=== PATIENT | male | born 1945 | race Caucasian/White ===

== ENCOUNTER 2019-05-30 10:20 | Emergency (ER) | payer OTHER ==
--- NOTE | 2019-05-30 10:50 | ED ---
Complex/Multi-Sys Presentation - HPI Summary HPI Summary: Patient is a 73 y/o M who presents to [facility] for dizziness and near syncopal events with falls. He claims to have had a UTI for 1-1.5 weeks, noting that he has had increased urgency of urination with minimal urine production, some dysuria, and dark colored urine with possible hematuria. However, he has not actually been diagnosed with a UTI. Patient states that he took his PTSD medicine two days ago and subsequently experienced onset of dizziness. He is prescribed Trazodone, Sertaline, Prazosin, and a blood thinner. Patient notes that dizziness is listed as the side effect of one of his medications but denies having experienced dizziness when taking his medications previously and also reports no recent dose changes. He characterizes the dizziness as a light- headedness/near syncope. Patient states that he fell as a result of his dizziness and injured his left leg. He states that while trying to get up, he fell again. Patient notes that he had another fall last night as well. He characterizes his left leg pain as a soreness. Pain is at his ankle to his thigh. Patient is capable of ambulation. No head injury noted. He additionally denies SOB, CP, fever, chills, SHOEMAKER. Patient was evaluated at another medical facility earlier today and he was sent to ED for further workup. He notes that his blood pressure was measured to be 98/60 at this facility and that he was given orange juice. Patient has not eaten today. PMHx of PTSD, afib, HTN, heart failure, diabetes, and GERD. NKDA reported. He denies cigarette, alcohol, and substance usage. Home medications and allergies are reviewed. is present in the room. - History Of Current Complaint Chief Complaint: EDWeakness Time Seen by Provider: 05/30/19 10:36 Hx Obtained From: Patient Onset/Duration: Lasting Days, Lasting Weeks Timing: Days, Weeks Severity Currently: Moderate Location: Pain At: - left leg Associated Signs And Symptoms: Positive: Dizziness - light-headedness and near syncope, Other - He reports left leg pain, increased urgency of urination with minimal urine production, some dysuria, and dark colored urine with possible hematuria. No head injury noted. He additionally denies SOB, CP, fever, chills, SHOEMAKER.. Negative: Headache, SOB, Chest Pain, Fever - Allergies/Home Medications Allergies/Adverse Reactions: Allergies Allergy/AdvReac Type Severity Reaction Status Date / Time No Known Allergies Allergy Verified 05/30/19 10:28 Home Medications: Home Medications Apixaban* [Eliquis*] 5 mg PO BID 05/30/19 [History Confirmed 05/30/19] Betamethasone Dip 0.05% ON(NF) [Betamethasone Dipr 0.05% OINT(NF)] 1 applic TOPICAL BID 05/30/19 [History Confirmed 05/30/19] Cetirizine* [ZyrTEC 10 MG TAB*] 10 mg PO DAILY 05/30/19 [History Confirmed 05/30] Digoxin TAB* [Lanoxin TAB*] 0.125 mg PO DAILY 05/30/19 [History Confirmed ] Docusate CAP* [Colace Cap*] 100 mg PO BID PRN 05/30/19 [History Confirmed ] Furosemide TAB* [Lasix TAB*] 20 mg PO DAILY 05/30/19 [History Confirmed 05/30/19 ] Furosemide TAB* [Lasix TAB*] 40 mg PO DAILY 05/30/19 [History Confirmed 05/30/19 ] Metoprolol Tartrate TAB* [Lopressor TAB*] 150 mg PO BID 05/30/19 [History Confirmed 05/30/19] Multivitamins/Minerals TAB* [Theragran/minerals TAB*] 1 tab PO DAILY 05/30/19 [ History Confirmed 05/30/19] Omeprazole CAP (NF) [Prilosec CAP* 20 MG] 20 mg PO QAM PRN 05/30/19 [History Confirmed 05/30/19] Prazosin HCl 6 mg PO BEDTIME 05/30/19 [History Confirmed 05/30/19] Sertraline* [Zoloft*] 200 mg PO BEDTIME 05/30/19 [History Confirmed 05/30/19] Simvastatin TAB(NF) [Zocor(NF)] 10 mg PO BEDTIME 05/30/19 [History Confirmed ] Tadalafil (Nf) [Cialis (NF)] 20 mg PO ONCE PRN 05/30/19 [History Confirmed 05/30] Tamsulosin CAP* [Flomax CAP*] 0.4 mg PO DAILY 05/30/19 [History Confirmed ] glipiZIDE TAB* [Glucotrol TAB*] 5 mg PO QAM 05/30/19 [History Confirmed 05/30/19 ] glipiZIDE TAB* [Glucotrol TAB*] 10 mg PO QPM 05/30/19 [History Confirmed ] lisinopriL [Lisinopril] 20 mg PO DAILY 05/30/19 [History Confirmed 05/30/19] metFORMIN* [Glucophage 500 MG TAB *] 500 mg PO BID 05/30/19 [History Confirmed 05/30/19] traZODone TAB* [Desyrel TAB*] 50 mg PO BEDTIME 05/30/19 [History Confirmed 05/30] PMH/Surg Hx/FS Hx/Imm Hx Endocrine/Hematology History: Reports: Hx Diabetes Cardiovascular History: Reports: Hx Atrial Fibrillation, Hx Congestive Heart Failure, Hx Hypertension GI History: Reports: Hx Gastroesophageal Reflux Disease Musculoskeletal History: Denies: Hx Scoliosis Neurological History: Denies: Hx Headaches, Other Neuro Impairments/Disorders Infectious Disease History: No Infectious Disease History: Denies: Traveled Outside the [place] in Last 30 Days - Family History Known Family History: Positive: Hypertension - Social History Alcohol Use: None Substance Use Type: Reports: None Smoking Status (MU): Never Smoked Tobacco Review of Systems Negative: Fever, Chills Negative: Chest Pain Negative: Shortness Of Breath Genitourinary: Other - positive - dark colored urine, minimal urine production Positive: dysuria, urgency - increased Musculoskeletal: Other - positive - left leg pain, falls Neurological: Other - positive - dizziness, near syncope; negative - head injury Negative: Headache All Other Systems Reviewed And Are Negative: Yes Physical Exam - Summary Physical Exam Summary: Constitutional: Well-developed, Well-nourished, Alert. (-) Distressed Skin: Warm, Dry HENT: Normocephalic; Atraumatic Eyes: Conjunctiva normal Neck: Musculoskeletal ROM normal neck. (-) JVD, (-) Stridor, (-) Tracheal deviation Cardio: Rhythm regular, rate normal, Heart sounds normal; Intact distal pulses; Radial pulses are 2+ and symmetric. (-) Murmur Pulmonary/Chest wall: Effort normal. (-) Respiratory distress, (-) Wheezes, (-) Rales Abd: Soft, (-) tenderness, (-) Distension, (-) Guarding, (-) Rebound Musculoskeletal: (-) Edema Lymph: (-) Cervical adenopathy Neuro: Alert, Oriented x3 Psych: Mood and affect Normal Triage Information Reviewed: Yes Vital Signs On Initial Exam: Initial Vitals Temp Pulse Resp BP Pulse Ox 97.2 F 86 18 107/78 98 05/30/19 10:21 05/30/19 10:21 05/30/19 10:21 05/30/19 10:21 05/30/19 10:21 Vital Signs Reviewed: Yes Procedures - Sedation Patient Received Moderate/Deep Sedation with Procedure: No Diagnostics - Vital Signs Vital Signs Temp Pulse Resp BP Pulse Ox 05/30/19 10:21 97.2 F 86 18 107/78 98 - Laboratory Result Diagrams: 05/30/19 10:57 05/30/19 10:57 Lab Statement: Any lab studies that have been ordered have been reviewed, and results considered in the medical decision making process. - EKG 1101 Cardiac Rate: Other Rate - afib with rate of 80 BPM EKG Rhythm: Atrial Fibrillation Summary of EKG Findings: EKG showed afib with rate of 80 BPM, no STEMI. This EKG was reviewed and interpreted by ED physician. Complex Multi-Symp Course/Dx Course Of Treatment: Patient is here with urinary frequency and urgency for the past 1.5 weeks. Patient has also had some syncopal episodes. Patient had blood performed which grossly unremarkable. Patient had a UA which showed UTI. Patient has not been eating or drinking for the past couple of days in his episodes of syncope occur after he takes his nighttime medicines. I believe these two go together and this is not a cardiac etiology of his syncope. Patient will be treated with antibiotics. Patient was comfortable with discharge - Diagnoses Provider Diagnoses: UTI (urinary tract infection), Syncope Discharge ED - Sign-Out/Discharge Documenting (check all that apply): Patient Departure - discharge - Discharge Plan Condition: Stable Disposition: HOME Prescriptions: Sulfamethox/Trimethoprim DS* [Bactrim DS 800/160 TAB*] 1 tab PO BID 10 Days #20 tab Patient Education Materials: Urinary Tract Infection in Men (ED), Syncope (ED) Referrals: Monica Calderon [Primary Care Provider] - 3 Days Additional Instructions: TAKE YOUR ANTIBIOTICS PRESCRIBED. EAT AND DRINK A NORMAL DIET. PLEASE RETURN TO ED FOR HIGH FEVERS, PAIN AT YOUR SIDES, OR ANY OTHER CONCERNING SYMPTOMS. - Billing Disposition and Condition Condition: STABLE Disposition: Home - Attestation Statements Document Initiated by Sabiha: Yes Documenting Scribe: ALTAGRACIA FULLER Provider For Whom Sabiha is Documenting (Include Credential): HUGH WANG MD Scribe Attestation: IALTAGRACIA, scribed for HUGH WANG MD on 05/30/19 at 1659. Scribe Documentation Reviewed: Yes Provider Attestation: The documentation as recorded by the ALTAGRACIA gallardo accurately reflects the service I personally performed and the decisions made by me, HUGH WANG MD Status of Scribe Document: Viewed
[2019-05-30] MEDS ORDERED: NS 0.9% 1000 ML** 1,000 ML IV ONE (10:58)
[2019-05-30 11:10] LABS: ABS Lymphocytes 0.8 10^3/ul (1.0-4.8); ABS Monocytes 1.3 10^3/ul (0-0.8); ABS Neutrophils 8.5 10^3/ul (1.5-7.7); Eosinophil % 0.1 %; Hematocrit 40 % (42-52); Lymphocyte % 7.5 %; Mean Corpuscular HGB Conc 35 g/dL (31-36); Mean Corpuscular Hemoglobin 30 pg (27-31); Mean Corpuscular Volume 87 fL (80-94); Mean Platelet Volume 10.1 fL (7.4-10.4); Platelet Count 218 10^3/uL (150-450); Red Blood Count 4.62 10^6 /uL (4.18-5.48); Red Cell Distribution Width 14 % (10-15); White Blood Count 10.6 10^3/uL (3.5-10.8)
[2019-05-30 11:35] LABS: Troponin I 0.01 ng/mL (<0.03)
[2019-05-30 11:47] LABS: Albumin 3.6 g/dL (3.2-5.2); Albumin/Globulin Ratio 1.2 (1-3); BUN/Creatinine Ratio 16.5 (8-20); EGFR African American 67.5 (>60); EGFR Non-African American 55.7 (>60); Globulin 2.9 g/dL (2-4); Potassium 4.3 mmol/L (3.5-5.0); Total Protein 6.5 g/dL (6.4-8.9)
[2019-05-30 14:20] LABS: Urine Appearance Cloudy; Urine Bilirubin Negative (Negative); Urine Blood 2+ (Negative); Urine Color Yellow; Urine Glucose 3+(>=500 mg/dL) (Negative); Urine Ketones Negative (Negative); Urine Nitrite Negative (Negative); Urine Protein Negative (Negative); Urine Specific Gravity 1.015 (1.010-1.030); Urine Urobilinogen Positive (Negative)
[2019-05-30 14:36] LABS: Urine Bacteria 2+ (Absent); Urine Red Blood Cell 2+(6-10/hpf) (Absent); Urine Squamous Epithelial Cell Present (Absent); Urine White Blood Cell 3+(>20/hpf) (Absent)
[2019-05-30] MEDS ORDERED: cefTRIAXone(*) 1 GM in NS 0.9% 50 ML* 50 ML IVPB ONE (14:42)
[2019-05-30 15:50] VITALS: BP 168/85
--- NOTE | 2019-06-02 07:27 | ED ---
Imaging and Labs Follow Up Follow Up Type: Labs/Cultures Labs/Culture Result: Urine culture final grew Escherichia coli 100,000 Patient Communication/Plan: Patient placed on Bactrim prior to discharge Patient Communication/Plan: Bactrim sensitive organism, nothing further required Provider Diagnoses: UTI (urinary tract infection), Syncope
== END 2019-05-30 15:52 | disposition home or self-care (01) ==
LOC: ED 10:20
DX: N39.0 Urinary tract infection, site not specified (principal); R55 Syncope and collapse; E11.9 Type 2 diabetes mellitus without complications; I48.91 Unspecified atrial fibrillation; I11.0 Hypertensive heart disease with heart failure; I50.9 Heart failure, unspecified; K21.9 Gastro-esophageal reflux disease without esophagitis; F43.10 Post-traumatic stress disorder, unspecified; Z79.01 Long term (current) use of anticoagulants; Z79.84 Long term (current) use of oral hypoglycemic drugs; Z79.899 Other long term (current) drug therapy
CPT/HCPCS: 36415; 80053; 81003; 81015; 83880; 84484; 85025; 87077; 87086; 87186; 93005; 96361; 96365; 99283; J0696

== ENCOUNTER 2024-04-06 15:42 | Inpatient (IN) ==
[2024-04-06] MEDS ORDERED: Calcium Gluconate 1 GM/10 ML VIAL (in Pyxis) ONE (15:45)
[2024-04-06] MEDS ORDERED: EPINEPHrine SYR 0.1MG/ML 10 ml SYRINGE IV ONE (15:45)
[2024-04-06] MEDS ORDERED: Sodium Bicarbonate 8.4% SYR 50 ml SYRINGE ONE (15:45)
[2024-04-06] MEDS: Norepinephrine 4 MG/250mL D5W 4,000 MCG/250 ML BAG IV SCH ×2 (15:55→19:20)
[2024-04-06 16:13] LABS: Hematocrit 46.6 % (38-53); Hemoglobin 14.7 g/dL (13.2-16.3); Mean Corpuscular Hgb Conc 31.4 g/dL (31-36); Mean Corpuscular Volume 92.2 fL (80-97); Mean Platelet Volume 10.8 fL (7.5-11.2); Platelet Count 159 10^3/uL (150-450); Red Blood Count 5.06 10^6/uL (4.06-5.63); Red Cell Distribution Width 15.2 % (12-17); White Blood Count 12.4 10^3/uL (3.6-10.2)
[2024-04-06] MEDS: NS 0.9% 1000 ml BAG 1,000 ML IV SCH (16:15)
[2024-04-06] MEDS ORDERED: Propofol 10 mg/ml 100 ML BTL 1,000 MG/100 ML BTL ONE (16:17)
[2024-04-06] MEDS: Propofol 10 mg/ml 100 ML BTL 1,000 MG/100 ML BTL IV SCH (16:17)
[2024-04-06 17:00] LABS: Potassium 3.9 mmol/L (3.5-5.0)
[2024-04-06 17:01] LABS: Albumin 3.8 g/dL (3.2-5.2); Albumin/Globulin Ratio 1.8 (1-3); Calcium 8.7 mg/dL (8.6-10.3); Creatinine, Serum 1.21 mg/dL (0.67-1.17); Globulin 2.1 g/dL (2-4); Total Bilirubin 0.9 mg/dL (0.2-1.0); Total Protein 5.9 g/dL (6.4-8.9); eGFR CKD-EPI 61.7 (>60)
[2024-04-06 17:15] LABS: INR 1.53 (0.85-1.14)
[2024-04-06 17:19] LABS: Magnesium 2.1 mg/dL (1.9-2.7)
[2024-04-06 17:20] LABS: High Sensitivity Troponin 1 Hr 142 pg/mL (<20)
[2024-04-06 17:23] LABS: ABS Basophils 0.1 10^3/uL (0.0-0.1); ABS Eosinophils 0.2 10^3/uL (0.0-0.5); ABS Lymphocytes 3.2 10^3/uL (1.0-4.8); ABS Nucleated RBC 0.02 10^3/ul; Eosinophil % 1.3 %; Lymphocyte % 25.4 %; Nucleated Red Blood Cells % 0.2 %/100WBC (0.0-0.8); RBC Morphology Normal (Normal)
[2024-04-06] MEDS ORDERED: Dextrose 50% Syringe 50 ml 25 GM/50 ML SYRINGE IV PUSH PRN (17:47)
[2024-04-06] MEDS ORDERED: Norepinephrine 4 MG/250mL NS 4,000 MCG/250 ML BAG IV SCH (18:00)
[2024-04-06] MEDS: Iodixanol 320 (CONTRAST) 100 ML SDV IV ONE (18:07)
[2024-04-06] MEDS ORDERED: Lorazepam PYXIS KEY PRN (18:59)
[2024-04-06] MEDS: LORazepam 2 mg VIAL 1 ml IV PUSH ONE (19:22)
[2024-04-06] MEDS: Heparin DRIP 25,000 UNITS BAG 25,000 UNITS/250 ML BAG IV SCH (20:21)
[2024-04-06] MEDS: Heparin 5000 UNITS/ML 1 mL VIAL IV SCH (20:23)
[2024-04-06] MEDS: Famotidine IV 10 MG/ML 2 ml VIAL (20 mg) IV SLOW PU SCH (20:26)
[2024-04-06] MEDS: Chlorhexidine MOUTHWASH 0.12% 15 ML UDC TOPICAL SCH (20:27)
[2024-04-06 21:27] LABS: Urine Appearance Turbid; Urine Bilirubin Negative (Negative); Urine Blood 3+ (Negative); Urine Color Light-Yellow; Urine Glucose 3+ (>=300 mg/dL) (Negative); Urine Ketones Negative (Negative); Urine Nitrite Negative (Negative); Urine Protein 1+ (>=30 mg/dL) (Negative); Urine Specific Gravity 1.041 (1.002-1.030); Urine Urobilinogen Negative (Negative)
[2024-04-06 21:34] LABS: High Sensitivity Troponin 3 Hr 555 pg/mL (<20)
[2024-04-06 22:30] LABS: Urine Bacteria Absent /HPF (Absent); Urine Red Blood Cell 3+(>10/hpf) /HPF (0-Trace); Urine White Blood Cell 2+(11-20/hpf) /HPF (0-Trace)
[2024-04-07 02:06] LABS: ABS Lymphocytes 0.9 10^3/uL (1.0-4.8); ABS Monocytes 1.5 10^3/uL (0.0-1.1); ABS Neutrophils 17.1 10^3/uL (1.5-7.6); ABS Nucleated RBC 0.01 10^3/ul; Hematocrit 42.8 % (38-53); Hemoglobin 14.1 g/dL (13.2-16.3); Lymphocyte % 4.7 %; Mean Corpuscular Hemoglobin 28.8 pg (27-33); Mean Corpuscular Hgb Conc 32.9 g/dL (31-36); Mean Corpuscular Volume 87.7 fL (80-97); Nucleated Red Blood Cells % 0.1 %/100WBC (0.0-0.8); Platelet Count 174 10^3/uL (150-450); Red Blood Count 4.88 10^6/uL (4.06-5.63); Red Cell Distribution Width 14.9 % (12-17); White Blood Count 19.5 10^3/uL (3.6-10.2)
[2024-04-07] MEDS ORDERED: Atropine 1 MG/ML INJ 1 ML VIAL IV PUSH PRN (02:06)
[2024-04-07] MEDS: fentaNYL 100 mcg/2 ml 50 MCG/ML VIAL IV SLOW PU ONE (02:17)
[2024-04-07] MEDS: Atropine 0.1 MG/ML 10 ml SYR (1 mg) IV PUSH PRN (02:28)
[2024-04-07 02:59] LABS: PCO2 Arterial 40 mmHg (35-45); PO2 Arterial 84 mmHg (80-100)
[2024-04-07] MEDS ORDERED: Midazolam 2 mg/2 ml VIAL 1 mg/ml 2 ml VIAL (2 mg) IV SLOW PU PRN (03:45)
[2024-04-07] MEDS ORDERED: Zosyn per Pharmacy NOTE FOLLOW UP SCH (04:00)
[2024-04-07] MEDS: Piperacillin/Tazobac 3.375 BAG 3.375 GM/100 ML BAG IV ONE (04:59)
[2024-04-07 06:08] LABS: Albumin 3.3 g/dL (3.2-5.2); Albumin/Globulin Ratio 1.7 (1-3); Calcium 8.1 mg/dL (8.6-10.3); Creatinine, Serum 1.32 mg/dL (0.67-1.17); Magnesium 1.7 mg/dL (1.9-2.7); Potassium 4.1 mmol/L (3.5-5.0); Total Protein 5.3 g/dL (6.4-8.9); eGFR CKD-EPI 55.6 (>60)
[2024-04-07] MEDS: fentaNYL INFUSION 50 mcg/mL VL 2,500 MCG/50 ML VIAL IV SCH (07:39)
[2024-04-07] MEDS: ZOSYN 3.375 GM Q8H per EXTENDED INFUSION IV SCH (08:23)
[2024-04-07] MEDS: Sulfur Hexaflouride MICROSPHR 25 MG VIAL IV PRN (09:03)
[2024-04-07] MEDS: DOXYcycline 100 MG in NS 0.9% 250 ml 250 ML IVPB SCH (17:20)
[2024-04-07] MEDS: Lactated Ringers 1000 ml BAG 1,000 ML IV SCH (22:19)
[2024-04-08 04:03] LABS: Calcium 8.4 mg/dL (8.6-10.3); Creatinine, Serum 1.37 mg/dL (0.67-1.17); Magnesium 1.7 mg/dL (1.9-2.7); Phosphorus 4.2 mg/dL (2.5-5.0); Potassium 3.5 mmol/L (3.5-5.0); eGFR CKD-EPI 53.1 (>60)
[2024-04-08 04:35] LABS: ABS Basophils 0.1 10^3/uL (0.0-0.1); ABS Eosinophils 0.1 10^3/uL (0.0-0.5); ABS Lymphocytes 1.5 10^3/uL (1.0-4.8); ABS Monocytes 1.1 10^3/uL (0.0-1.1); ABS Neutrophils 13.1 10^3/uL (1.5-7.6); ABS Nucleated RBC 0.01 10^3/ul; Eosinophil % 0.5 %; Hemoglobin 13.2 g/dL (13.2-16.3); Lymphocyte % 9.4 %; Mean Corpuscular Hgb Conc 32.9 g/dL (31-36); Mean Corpuscular Volume 88.2 fL (80-97); Mean Platelet Volume 10.7 fL (7.5-11.2); Platelet Count 154 10^3/uL (150-450); Red Blood Count 4.54 10^6/uL (4.06-5.63); White Blood Count 15.8 10^3/uL (3.6-10.2)
[2024-04-08] MEDS: Magnesium Sulfate 2 gm BAG 2 GM/50 ML BAG IVPB ONE (05:31)
[2024-04-08] MEDS: Acetaminophen IV 1 GM/100ML 1,000 MG/100 ML BAG IV PRN (13:54)
[2024-04-08] MEDS: KCL 20 MEQ/100 ML IVPREMIX 20 MEQ/100 ML BAG IV SCH (16:01)
[2024-04-08] MEDS: fentaNYL 100 mcg/2 ml 50 MCG/ML VIAL IV SLOW PU PRN (16:15)
[2024-04-08] MEDS: Digoxin IV 0.5 MG/2 ML AMP (0.25 MG/ML) IV SLOW PU SCH (16:43)
[2024-04-08 18:33] LABS: Urine Appearance No Cx Turbid (Clear); Urine Bilirubin No Culture Negative (Negative); Urine Blood No Culture 3+ (Negative); Urine Color No Culture Yellow; Urine Glucose No Culture Negative (Negative); Urine Ketones No Culture Negative (Negative); Urine Leukocytes No Culture Negative Leu/uL (Negative); Urine Nitrite No Culture Negative (Negative); Urine Protein No Culture 1+ (>=30 mg/dL) (Negative); Urine Specific Gravity No Cx 1.031 (1.002-1.030); Urine Urobilinogen No Cx Negative (Negative); Urine pH No Culture 5.5 (5.0-8.0)
[2024-04-08 18:46] LABS: Ur Amorph Crystals No Culture Present /HPF (Absent); Ur Squamous Epithelial No Cx Present /HPF (Absent); Urine Bacteria No Culture Absent /HPF (Absent); Urine Red Blood Cell No Cult 3+(>10/hpf) /HPF (0-Trace); Urine White Blood Cell No Cult Trace(0-5/hpf) /HPF (0-Trace)
[2024-04-09 05:22] LABS: ABS Basophils 0.1 10^3/uL (0.0-0.1); ABS Lymphocytes 1.1 10^3/uL (1.0-4.8); ABS Monocytes 1.5 10^3/uL (0.0-1.1); ABS Neutrophils 13.1 10^3/uL (1.5-7.6); ABS Nucleated RBC 0.01 10^3/ul; Hematocrit 38.6 % (38-53); Hemoglobin 12.5 g/dL (13.2-16.3); Lymphocyte % 6.8 %; Mean Corpuscular Hemoglobin 28.8 pg (27-33); Mean Corpuscular Hgb Conc 32.5 g/dL (31-36); Mean Corpuscular Volume 88.6 fL (80-97); Nucleated Red Blood Cells % 0.1 %/100WBC (0.0-0.8); Platelet Count 146 10^3/uL (150-450); Red Blood Count 4.35 10^6/uL (4.06-5.63); Red Cell Distribution Width 15.3 % (12-17); White Blood Count 15.8 10^3/uL (3.6-10.2)
[2024-04-09] MEDS: Acetaminophen IV 1 GM/100ML 1,000 MG/100 ML BAG IV SCH (15:00)
[2024-04-09 15:12] LABS: Calcium 8.5 mg/dL (8.6-10.3); Creatinine, Serum 1.52 mg/dL (0.67-1.17); Potassium 4.4 mmol/L (3.5-5.0); eGFR CKD-EPI 46.9 (>60)
[2024-04-09] MEDS: Polyethyl Glycol/Propylene Gly OPHTH.SOLN BOTH EYES PRN (16:45)
[2024-04-10 06:00] LABS: ABS Basophils 0.1 10^3/uL (0.0-0.1); ABS Eosinophils 0.1 10^3/uL (0.0-0.5); ABS Lymphocytes 0.8 10^3/uL (1.0-4.8); ABS Monocytes 0.9 10^3/uL (0.0-1.1); ABS Neutrophils 8.9 10^3/uL (1.5-7.6); ABS Nucleated RBC 0.01 10^3/ul; Eosinophil % 0.7 %; Hematocrit 36.1 % (38-53); Hemoglobin 12.2 g/dL (13.2-16.3); Lymphocyte % 7.5 %; Mean Corpuscular Hemoglobin 29.6 pg (27-33); Mean Corpuscular Hgb Conc 33.9 g/dL (31-36); Mean Corpuscular Volume 87.3 fL (80-97); Mean Platelet Volume 10.1 fL (7.5-11.2); Nucleated Red Blood Cells % 0.1 %/100WBC (0.0-0.8); Platelet Count 139 10^3/uL (150-450); Red Blood Count 4.14 10^6/uL (4.06-5.63); Red Cell Distribution Width 15.3 % (12-17); White Blood Count 10.8 10^3/uL (3.6-10.2)
[2024-04-10 07:20] LABS: Calcium 8.8 mg/dL (8.6-10.3); Creatinine, Serum 1.38 mg/dL (0.67-1.17); Magnesium 2.1 mg/dL (1.9-2.7); Phosphorus 3.6 mg/dL (2.5-5.0); Potassium 4.4 mmol/L (3.5-5.0); eGFR CKD-EPI 52.7 (>60)
[2024-04-10] MEDS: hydrALAZINE 20 mg/ml 1 ML Vial IV IV SLOW PU ONE (14:39)
[2024-04-10] MEDS: hydrALAZINE 20 mg/ml 1 ML Vial IV ONE (14:47)
[2024-04-10] MEDS ORDERED: hydrALAZINE 20 mg/ml 1 ML Vial IV IV SLOW PU PRN (15:35)
[2024-04-10] MEDS: Sodium Chloride 3% HYPERTONIC 150 ML IV ONE (19:59)
[2024-04-10 20:24] LABS: Anaplasma phagocytophilum Negative (Negative); B. miyamotoi PCR, B Negative (Negative); Babesia divergens/MO-1 Negative (Negative); Babesia ducani Negative (Negative); Ehrlichia chaffeensis Negative (Negative); Ehrlichia ewingii/canis Negative (Negative); Ehrlichia muris eauclairensis Negative (Negative)
[2024-04-10 23:48] LABS: Calcium 8.8 mg/dL (8.6-10.3); Creatinine, Serum 1.28 mg/dL (0.67-1.17); Potassium 4.8 mmol/L (3.5-5.0); eGFR CKD-EPI 57.6 (>60)
[2024-04-11] MEDS: Sodium Chloride 3% HYPERTONIC 150 ML IV ONE ×2 (00:42→10:45)
[2024-04-11 03:24] LABS: Calcium 8.8 mg/dL (8.6-10.3); Creatinine, Serum 1.29 mg/dL (0.67-1.17); Potassium 4.6 mmol/L (3.5-5.0); eGFR CKD-EPI 57.1 (>60)
[2024-04-11 05:41] LABS: ABS Lymphocytes 1.1 10^3/uL (1.0-4.8); ABS Monocytes 0.8 10^3/uL (0.0-1.1); ABS Nucleated RBC 0.01 10^3/ul; Eosinophil % 0.6 %; Hematocrit 35.9 % (38-53); Hemoglobin 11.9 g/dL (13.2-16.3); Lymphocyte % 11.9 %; Mean Corpuscular Hgb Conc 33.2 g/dL (31-36); Mean Corpuscular Volume 87.5 fL (80-97); Mean Platelet Volume 10.1 fL (7.5-11.2); Nucleated Red Blood Cells % 0.1 %/100WBC (0.0-0.8); Platelet Count 156 10^3/uL (150-450); Red Cell Distribution Width 15.1 % (12-17); White Blood Count 8.9 10^3/uL (3.6-10.2)
[2024-04-11] MEDS: niCARdipine 0.1MG/ML IVPREMIX 20 MG/200 ML BAG IV SCH (07:17)
[2024-04-11 07:18] LABS: Calcium 8.6 mg/dL (8.6-10.3); Creatinine, Serum 1.23 mg/dL (0.67-1.17); Potassium 4.6 mmol/L (3.5-5.0); eGFR CKD-EPI 60.5 (>60)
[2024-04-11] MEDS ORDERED: Atropine 1 MG/ML INJ 1 ML VIAL IV PUSH PRN (10:49)
[2024-04-11 14:01] LABS: Calcium 8.7 mg/dL (8.6-10.3); Creatinine, Serum 1.18 mg/dL (0.67-1.17); Potassium 4.6 mmol/L (3.5-5.0); eGFR CKD-EPI 63.6 (>60)
[2024-04-11 17:39] LABS: IgG Immunoblot Negative (Negative); IgM Immunoblot Negative (Negative)
[2024-04-12] MEDS ORDERED: Atropine 1% (ORAL/SL) 15 ML BTL SL PRN (12:23)
[2024-04-12] MEDS: Scopolamine 1 mg/72hr PATCH TRANSDERM SCH (12:37)
[2024-04-12] MEDS: LORazepam 2 mg VIAL 1 ml IV PUSH PRN ×3 (12:38→18:17)
[2024-04-12 13:32] VITALS: BP 182/91
[2024-04-12] MEDS: Morphine 10 MG/ML VIAL (1 ml) ONE (18:18)
[2024-04-12] MEDS: LORazepam 2 mg VIAL 1 ml ONE (18:35)
== END 2024-04-12 18:51 | disposition expired | DRG 207 ==
LOC: EDHOLD 15:42 → ED 15:42 → OBSVTOIN 17:02 → ICU 17:16
PROVIDERS: ADMIT Internal Medicine Critical Care Medicine; ATTEND Internal Medicine